=== PATIENT | male | born 2000 | race Caucasian/White ===

== ENCOUNTER 2023-09-04 12:51 | Outpatient (CLI) | payer OTHER, SELFPAY ==
--- NOTE | ~2023-09-04 | XR_ITS ---
EXAMINATION: XR abdomen/kub 1V DATE: 09/04/2023 13:29 INDICATION: Constipation and diarrhea. Abdominal pain. TECHNIQUE: A supine view of the abdomen on 2 radiographs was obtained. COMPARISON: None FINDINGS: Moderate amount of gas and stool scattered throughout the colon. There is also gas scattered througho ut several nondilated loops of small bowel. Mild lumbar levorotoscoliosis. Lung bases are clear. Hear t size is normal. IMPRESSION: 1. Moderate amount of colonic stool consistent with reported history of constipation. No dilated liliana l to suggest obstruction. Reviewed, dictated and finalized at location B. IMPRESSION: 1. Moderate amount of colonic stool consistent with reported history of constip ation. No dilated bowel to suggest obstruction.
[2023-09-04 13:36] LABS: Hemoglobin 15.5 g/dL (14.0-18.0); Mean Corpuscular HGB Conc 34.4 g/dl (32-36); Mean Corpuscular Volume 84.1 fl (80-100); Mean Platelet Volume 9.3 fl (7.4-10.4); Platelet Count Result 187 k/mm3 (150-375); Red Blood Count 5.35 M/mm3 (4.6-6.20); Red Cell Distribution Width 12.3 % (11.5-14.5); White Blood Count 5.6 K/mm3 (4.5-10.0)
[2023-09-04 13:52] LABS: Alanine Aminotransferase 26 U/L (6-50); Albumin Level 4.8 g/dL (3.5-5.1); Alkaline Phosphatase 95 U/L (38-126); Anion Gap 6 mmol/L (8-16); Aspartate Amino Transferase 29 U/L (17-59); Bilirubin,Total 1.3 mg/dL (0.2-1.3); Blood Urea Nitrogen 11 mg/dL (9-20); CRP < 0.5 mg/dL (<1.0); Calcium 9.7 mg/dL (8.4-10.2); Carbon Dioxide 28 mmol/L (22-30); Chloride 105 mmol/L (98-107); Estimated Glomerular Filt Rate > 60; Glucose 89 mg/dL (65-110); Lipase 168 U/L (23-300); Potassium 3.7 mmol/L (3.4-5.0); Sodium 139 mmol/L (137-145)
[2023-09-04 14:57] LABS: Erythrocyte Sedimentation Rate 12 mm/hr (0-20)
[2023-09-09 05:43] LABS: Immunoglobulin A 249 mg/dL (47-310); TTG IGA AB <1.0 U/mL (<15.0)
== END 2023-09-04 12:52 | disposition home or self-care (01) ==
PROVIDERS: PCP Internal Medicine; Visit Provider Nurse Practitioner
DX: K59.09 Other constipation (principal); K62.5 Hemorrhage of anus and rectum; R14.0 Abdominal distension (gaseous); R14.2 Eructation; R19.7 Diarrhea, unspecified
CPT/HCPCS: 36415; 74018; 80048; 80076; 82784; 83690; 83993; 84443; 85027; 85652; 86140; 86364; 87045; 87269; 87427; 87449; 87493

== ENCOUNTER 2023-09-04 16:02 | Outpatient (CLI) | payer OTHER, SELFPAY ==
[2023-09-04 18:45] LABS: Toxigenic C. Diff NEGATIVE (NEGATIVE)
[2023-09-11 19:32] LABS: Calprotectin, Stool 49 mcg/g
== END 2023-09-04 16:03 | disposition home or self-care (01) ==
LOC: ANHLAB 16:04
PROVIDERS: PCP Internal Medicine; Visit Provider Nurse Practitioner
DX: K59.09 Other constipation (principal); K62.5 Hemorrhage of anus and rectum; R14.0 Abdominal distension (gaseous); R14.2 Eructation; R19.7 Diarrhea, unspecified
CPT/HCPCS: 83993; 87045; 87269; 87427; 87449; 87493

== ENCOUNTER 2023-09-10 14:10 | Outpatient (CLI) | payer OTHER, SELFPAY ==
--- NOTE | ~2023-09-10 | CT_ITS ---
EXAMINATION: CT abdomen pelvis w con INDICATION: Abdominal distention, history of colitis TECHNIQUE: Computed tomographic images of the abdomen and pelvis were obtained after the administrati on of 100 cc of Omnipaque 350 intravenous contrast. The dose-length product (DLP) was 260.23 mGy-cm. Automated exposure control and iterative reconstruction technique were employed. COMPARISON: None available FINDINGS: The lung bases are clear. The heart size is normal. The liver, spleen, pancreas, gallbladde r, and adrenal glands are normal. Cysts of the kidneys measure up to 1.1 cm on the left. No pathologi rony enlarged abdominal or pelvic lymph nodes are identified. No free intraperitoneal gas or evidenc e of bowel obstruction. The appendix is normal. Thoracic dextroscoliosis is noted. IMPRESSION: 1. No CT correlate for the patient's symptoms. Reviewed, dictated and finalized at location F.
== END 2023-09-10 14:11 | disposition home or self-care (01) ==
PROVIDERS: Visit Provider Nurse Practitioner
DX: R10.9 Unspecified abdominal pain (principal); Z87.19 Personal history of other diseases of the digestive system; K62.5 Hemorrhage of anus and rectum; R14.0 Abdominal distension (gaseous)
CPT/HCPCS: 74177; Q9967

== ENCOUNTER 2023-10-13 01:05 | Day surgery (SDC) | payer OTHER, SELFPAY ==
[2023-10-02 12:21] VITALS: BMI 22.1
[2023-10-13 12:42] VITALS: BP 114/89; PULSE 88; RESP 18; TEMP 36.1; O2SAT 99
[2023-10-13] MEDS: LACTATED RINGERS 1,000 ML 150 ML IV CONT (12:57)
--- NOTE | 2023-10-13 13:00 | WPDANESEPPF ---
Anes - Initial Pre Proc Eval Procedure: Operation Date: 10/13/23 14:00 Proposed Procedures p Colonoscopy - Emre Downing MD Date/Time: 10/13/23 13:00 Surgeon: Emre Downing MD Pre Op Diagnosis: Hemorrhage of anus and rectum, diarrhea unspecifie Patient Data Age: 23 Gender: M Height: 1.75 m Weight: 65.8 kg Last Vital Signs Temp 97 F L 10/13/23 12:42 Pulse 88 10/13/23 12:42 Resp 18 10/13/23 12:42 BP 114/89 10/13/23 12:42 Pulse Ox 99 10/13/23 12:42 O2 Del Method Room Air 10/13/23 12:42 Allergies Allergy/AdvReac Type Severity Reaction Status Date / Time No Known Allergies Allergy Verified 10/13/23 12:42 Home Medications Medication Instructions Recorded Confirmed Type polyethylene glycol 3350 17 17 g PO BID 02/06/21 10/02/23 History gram/dose oral powder (Miralax) linaclotide 290 mcg capsule 290 mcg Capsule#3 Samples 09/15/23 10/02/23 Sample (Linzess) Patient hx anesthesia problems: none Family hx anesthesia problems: none Results Review: All pre-operative results and documents have been reviewed as part of the pre-operative evaluation. REPLACED BY [facility] Past Medical History Medical History (Updated 09/04/23 @ 13:04 by Melani Miller APRN) Abdominal pain Allergies Anxiety Asthma Belching Bloating Blood in stool Blood in urine Bright red blood per rectum Chronic constipation Family hx of colon cancer History of colitis No pertinent past medical history Overflow diarrhea Total bilirubin, elevated Surgical History Surgical History Hx of wisdom tooth extraction 2017 No pertinent past surgical history Family History Family History Father Alcohol abuse Mother Depression Grandparent Diabetes mellitus Depression Heart disease Grandparent Alcohol abuse Social History Social History Smoking status: Never smoker Alcohol intake: never Substance use: never Substance use type: does not use Living arrangements: with family Gender identity (if verbalized by the patient): Male Spiritual care concerns: No Anes - Eval Final PreProcedure Day of Procedure 10/13/23 13:00 Patient weight: normal Heart: regular rate and rhythm Lungs: clear to auscultation Airway: Mallampati scale class II Neurological: alert and oriented Last oral intake: >/= 8 hours ASA classification: II Emergent: no Anesthetic plan: proceed Anesthesia type and monitoring: general GIVS and standard monitoring Results Review: All pre-operative results and documents have been reviewed as part of the pre-operative evaluation. Informed Consent: The patient's anesthetic plan and its attendant risks and benefits were discussed with the patient/family/POA. Questions were solicited and answers provided to the satisfaction of the patient/family/POA.
--- NOTE | 2023-10-13 13:07 | PM.HPGS ---
History of Present Illness History of Present Illness Consent: Risks, benefits, and alternatives have been discussed and questions answered. Patient agrees to proceed with procedure. Chief complaint: Hemorrhage of anus and rectum, constipation Narrative: Jean Sears is a 23 year old male with constipation on miralax and linzess, few times noted blood in stools. Also eructation. Never had scopes. Review of Systems Review of Systems: All systems reviewed & are unremarkable except as noted in HPI and below PMFSH Past Medical History Medical History (Updated 09/04/23 @ 13:04 by Melani Miller APRN) Abdominal pain Allergies Anxiety Asthma Belching Bloating Blood in stool Blood in urine Bright red blood per rectum Chronic constipation Family hx of colon cancer History of colitis No pertinent past medical history Overflow diarrhea Total bilirubin, elevated Surgical History Surgical History Hx of wisdom tooth extraction 2016 No pertinent past surgical history Family History Family History Father Alcohol abuse Mother Depression Grandparent Diabetes mellitus Depression Heart disease Grandparent Alcohol abuse Social History Social History Smoking status: Never smoker Alcohol intake: never Substance use: never Substance use type: does not use Living arrangements: with family Gender identity (if verbalized by the patient): Male Spiritual care concerns: No Meds Home Medications and Allergies Home Medications Medication Instructions Recorded Confirmed Type polyethylene glycol 3350 17 17 g PO BID 02/06/21 10/02/23 History gram/dose oral powder (Miralax) linaclotide 290 mcg capsule 290 mcg Capsule#3 Samples 09/15/23 10/02/23 Sample (Linzess) Allergies Allergy/AdvReac Type Severity Reaction Status Date / Time No Known Allergies Allergy Verified 10/13/23 12:42 Vital Signs Vital Signs - 24 hr 10/13/23 12:42 Temperature 97 F L Pulse Rate 88 Respiratory Rate 18 Blood Pressure 114/89 Pulse Oximetry 99 Oxygen Delivery Room Air Exam Const: General: comfortable and no acute distress HENMT: Face/Nose/Sinus: Normal nares present Eyes: General: appearance normal, both eyes and all related structures Neck: Neck: no JVD Resp: Auscultation: clear to auscultation bilaterally Cardio: Rate: regular rate Rhythm: regular rhythm GI: Inspection: non-distended GI Palp: Yes Soft to palpation Skin: General skin exam: normal color Neuro: General: gait normal Speech: normal speech Extrem: General: normal to inspection Psych: Mental Status: mental status grossly normal Assessment and Plan Assessment and plan (1) Chronic constipation: Code(s): K59.09 - Other constipation Status: Acute Assessment and Plan: colonoscopy
[2023-10-13 13:21] VITALS: BP 95/53; PULSE 65; RESP 22; O2SAT 98
[2023-10-13 13:31] VITALS: BP 107/73; PULSE 59; RESP 20; O2SAT 98
[2023-10-13 13:41] VITALS: BP 112/54; PULSE 75; RESP 20; O2SAT 98
== END 2023-10-13 13:57 | disposition home or self-care (01) ==
PROVIDERS: Visit Provider Internal Medicine Gastroenterology
PROC: 0DJD8ZZ Inspection of Lower Intestinal Tract, Via Natural or Artificial Opening Endoscopic (ICD-10-PCS; CPT 45378; principal; 2023-10-13 14:00)
DX: K92.1 Melena (principal); K64.8 Other hemorrhoids; F41.9 Anxiety disorder, unspecified; J45.909 Unspecified asthma, uncomplicated; K59.09 Other constipation; Z80.0 Family history of malignant neoplasm of digestive organs; Z82.49 Family history of ischemic heart disease and other diseases of the circulatory system
CPT/HCPCS: 45378; J2704; J7120

== ENCOUNTER 2023-10-21 02:53 | Day surgery (SDC) | payer OTHER, SELFPAY ==
[2023-10-20 13:42] VITALS: BMI 21.4
[2023-10-21 08:34] VITALS: BP 108/60; PULSE 52; RESP 16; TEMP 36.1; O2SAT 96; BMI 21.8
[2023-10-21] MEDS: LACTATED RINGERS 1,000 ML 150 ML IV CONT (08:43)
--- NOTE | 2023-10-21 09:15 | WPDANESEPPF ---
Anes - Initial Pre Proc Eval Procedure: Operation Date: 10/21/23 10:00 Proposed Procedures p Esophagogastroduodenoscopy - Emre Downing MD Date/Time: 10/21/23 09:15 Surgeon: Emre Downing MD Pre Op Diagnosis: Eructation, Abdominal distension Patient Data Age: 23 Gender: M Height: 1.75 m Weight: 67 kg Last Vital Signs Temp 97 F L 10/21/23 08:34 Pulse 52 L 10/21/23 08:34 Resp 16 10/21/23 08:34 BP 108/60 10/21/23 08:34 Pulse Ox 96 10/21/23 08:34 O2 Del Method Room Air 10/21/23 08:34 Allergies Allergy/AdvReac Type Severity Reaction Status Date / Time No Known Allergies Allergy Verified 10/21/23 08:34 Home Medications Medication Instructions Recorded Confirmed Type linaclotide 290 mcg capsule 290 mcg Capsule#3 Samples 09/15/23 10/21/23 Sample (Linzess) Patient hx anesthesia problems: none Family hx anesthesia problems: none Results Review: All pre-operative results and documents have been reviewed as part of the pre-operative evaluation. [facility] Past Medical History Medical History (Updated 10/14/23 @ 14:03 by Melani Miller APRN) Abdominal pain Allergies Anxiety Asthma Belching Bloating Blood in stool Blood in urine Bright red blood per rectum Chronic constipation Family hx of colon cancer History of colitis No pertinent past medical history Overflow diarrhea Total bilirubin, elevated Surgical History Surgical History Hx of wisdom tooth extraction 2016 No pertinent past surgical history Family History Family History Father Alcohol abuse Mother Depression Grandparent Diabetes mellitus Depression Heart disease Grandparent Alcohol abuse Social History Social History Smoking status: Never smoker Alcohol intake: never Substance use: current Substance use type: does not use Living arrangements: with family Gender identity (if verbalized by the patient): Male Spiritual care concerns: No Anes - Eval Final PreProcedure Day of Procedure 10/21/23 09:15 Patient weight: normal Heart: regular rate and rhythm Lungs: clear to auscultation Airway: Mallampati scale class II Neurological: alert and oriented Last oral intake: >/= 8 hours ASA classification: II Emergent: no Anesthetic plan: proceed Anesthesia type and monitoring: general GIVS and standard monitoring Results Review: All pre-operative results and documents have been reviewed as part of the pre-operative evaluation. Informed Consent: The patient's anesthetic plan and its attendant risks and benefits were discussed with the patient/family/POA. Questions were solicited and answers provided to the satisfaction of the patient/family/POA.
--- NOTE | 2023-10-21 09:32 | WPDHPUPDATE1 ---
History and Physical Update Update Date/Time: 10/21/23 09:32 History and Physical has been reviewed, including an updated exam of the patient. There are NO changes in the patient's condition. Risks, benefits, and alternatives have been discussed and questions answered. Patient agrees to proceed with procedure.
[2023-10-21 09:45] VITALS: BP 95/55; PULSE 49; RESP 20; O2SAT 98
[2023-10-21 09:55] VITALS: BP 98/71; PULSE 45; RESP 13; O2SAT 99
[2023-10-21 10:05] VITALS: BP 100/59; PULSE 48; RESP 18; O2SAT 99
== END 2023-10-21 10:11 | disposition home or self-care (01) ==
PROVIDERS: Visit Provider Internal Medicine Gastroenterology
PROC: 0DJ08ZZ Inspection of Upper Intestinal Tract, Via Natural or Artificial Opening Endoscopic (ICD-10-PCS; CPT 43235; principal; 2023-10-21 10:00)
DX: K20.90 Esophagitis, unspecified without bleeding (principal); K59.09 Other constipation
CPT/HCPCS: 43239; 88305; J2704; J7120

== ENCOUNTER 2023-12-07 13:23 | Outpatient (CLI) | payer OTHER, SELFPAY ==
--- NOTE | ~2023-12-07 | XR_ITS ---
EXAMINATION: XR UGIAC w small bowel DATE: 12/07/2023 15:23 INDICATION: Abdominal pain, belching and constipation TECHNIQUE: The patient drank thick barium, gas-producing crystals, and thin barium. Conventional supi ne abdomen radiographs and fluoroscopic spot radiographs of the esophagus, stomach, and proximal smal l bowel were obtained. Additional overhead radiographs were obtained during the transit through the s mall bowel. Spot fluoroscopic images of the small bowel were obtained upon contrast reaching the cec um. A total of 554 fluoroscopic images and 5 overhead radiographs were obtained. Fluoroscopy exposure time was 1.6 minutes. Total DAP was 28.044 Gycm^2 COMPARISON: CT dated 09/10/2023 FINDINGS: The esophagus is normal without mass or stricture. Esophageal motility is normal. There is no hiatal hernia. There was no gastroesophageal reflux with provocative maneuvers. The stomach and proximal sma ll bowel are normal. Transit time from the stomach to proximal colon was approximately 60 minutes. There is normal caliber and mucosal fold pattern throughout the small bowel. Terminal ileum is normal. No tethering or abnor mal mass effect observed upon the small bowel with real-time fluoroscopy. IMPRESSION: 1. Normal upper GI and small bowel follow-through study. Reviewed, dictated and finalized at location A.
== END 2023-12-07 13:24 | disposition home or self-care (01) ==
PROVIDERS: Visit Provider Nurse Practitioner
DX: K59.09 Other constipation (principal); R14.2 Eructation
CPT/HCPCS: 74246; 74248